=== PATIENT | female | born 1940 | race Caucasian/White ===

== ENCOUNTER 2016-06-17 08:56 | Inpatient (IN) | payer OTHER ==
--- NOTE | 2016-06-17 09:29 | CPEKG ---
Heart Rate: 96 RR Interval: 625 P-R Interval: 152 QRSD Interval: 96 QT Interval: 274 QTC Interval: 347 P Phoenix: 35 QRS Phoenix: -51 T Wave Phoenix: 172 EKG Severity - ABNORMAL ECG - EKG Impression: SINUS RHYTHM EKG Impression: VENTRICULAR BIGEMINY EKG Impression: PROBABLE LEFT ATRIAL ABNORMALITY EKG Impression: LEFT ANTERIOR FASCICULAR BLOCK EKG Impression: REPOL ABNRM SUGGESTS ISCHEMIA, DIFFUSE LEADS Electronically Signed By: Lizet Nails 17-Jun-2016 15:10:53
--- NOTE | 2016-06-17 09:42 | EDPHY ---
H & P Stated Complaint: l jaw pain/no ttrauma x 2 days Time Seen by Provider: 06/17/16 09:29 HPI/ROS: CHIEF COMPLAINT: Jaw pain HISTORY OF PRESENT ILLNESS: The patient is a 75 year old female presenting with left sided jaw pain that started yesterday and has since remained constant. Her pain worsened throughout the day and began to radiate into her lip and cheek. She notes some right sided dental pain that is very moderate. Last night she had some shortness of breath while trying to sleep. She took Tylenol last night and this morning which slightly improved her pain. She denies chest pain. The patient is scheduled to have an ECHO today to further investigate a cardiac murmur. REVIEW OF SYSTEMS: Aside from elements discussed in the HPI, a comprehensive 10-point review of systems was reviewed and is negative. PAST MEDICAL HISTORY: I reviewed the patient's past medical records from . 1. Schizophrenia 2. DVT/PE in 2007 3. COPD, 2L oxygen dependent 4. Chronic back pain 5. Hypertension 6. Chronic constipation 7. Bigeminy 8. Hip replacement SOCIAL HISTORY: Has a art manager. In 2009 was residing in a psych senior care. VITAL SIGNS: Reviewed by me GENERAL: Well-developed, well-nourished, resting comfortably in no respiratory distress. HEENT: Atraumatic. Eyes: No icterus, no injection. Mouth: moist mucous membranes. No erythema or lesions. Neck: supple with no adenopathy. LUNGS: Clear to auscultation bilaterally, no wheezes, rhonchi or rales. CARDIAC: Irregular, cresendo- decrescendo murmur. ABDOMEN: Soft, nontender, nondistended, bowel sounds normal. BACK: No CVA tenderness. EXTREMITIES: No trauma. No edema. Range of motion is normal throughout. NEURO: Alert and oriented, grossly nonfocal. SKIN: Warm and dry, no rash. PSYCHIATRIC: Normal mentation, no agitation. Portions of this note were transcribed by a medical laboratory scientist. I personally performed a history, physical exam, medical decision making, and confirmed accuracy of information the transcribed note. Source: Patient, Old records - Personal History Current Tetanus/Diphtheria Vaccine: Yes - Medical/Surgical History Hx Asthma: No Hx Chronic Respiratory Disease: No Hx Diabetes: No Hx Cardiac Disease: No Hx Renal Disease: No Hx Cirrhosis: No Hx Alcoholism: No Hx HIV/AIDS: No Hx Splenectomy or Spleen Trauma: No Other PMH: hip replacement - Social History Smoking Status: Never smoked Constitutional: Initial Vital Signs Temperature (C) 37.1 C 06/17/16 09:02 Heart Rate 74 06/17/16 09:02 Respiratory Rate 18 06/17/16 09:02 Blood Pressure 149/94 H 06/17/16 09:02 O2 Sat (%) 93 06/17/16 09:02 O2 Delivery Mode Nasal Cannula O2 (L/minute) 3.5 Allergies/Adverse Reactions: loratadine [Loratadine] Allergy (Mild, Verified 06/17/16 08:57) Rash Home Medications: Medication Instructions Recorded Docusate Sodium [Colace 100 MG (*)] 100 mg PO BID@,12 06/04/09 Furosemide [Lasix 20 MG (*)] 20 mg PO DAILY 06/04/09 Multivitamins [Multivitamin (*)] 1 each PO BID@,06/04/09 QUEtiapine FUMARATE [Seroquel 300 mg PO HS 06/04/09 300mg (*)] Ramipril [Altace 1.25mg (*)] 1.25 mg PO DAILY 06/04/09 Warfarin Sodium [Coumadin 4MG (*)] 4 mg PO MOTUWEFRSA@06/04/09 Herbals/Supplements -Info Only 1 ea PO DAILY 12/21/09 Levothyroxine [Synthroid 75 mcg 75 mcg PO DAILY06 12/21/09 (*)] Simvastatin [Zocor] 20 mg PO DAILY@12/21/09 Warfarin Sodium [Coumadin 5MG (*)] 5 mg PO SUTH@12/21/09 Acetaminophen [Tylenol 325mg (*)] 650 mg PO Q4HRS PRN 06/17/16 Ibuprofen [Motrin (*)] 200 mg PO Q4HRS PRN 06/17/16 [place] Carbonate ER [Eskalith Cr 675 mg PO HS 06/17/16 450 mg (*)] Medical Decision Making - Diagnostics EKG Interpretation: The 12 lead EKG was interpreted by myself. See hard copy and/or "tracemaster" electronic copy for interpretation: Sinus rhythm, paired ventricular premature complexes, low voltage in frontal leads. Imaging: Study: X-ray of the chest was obtained. Results: Interval enlargement of the right hilum. Recommend chest CT with IV contrast for further evaluation, when the patient is clinically able.. Images were interpreted by the radiologist, Dr. Martinez. I viewed the images myself on the PACS system. ED Course/Re-evaluation: I reviewed the patient's past medical records from 2009. The patient has a history of schizophrenia and PE/DVT. According to records she has COPD and is supposed to be on 2L of O2. The patient is not on any supplemental oxygen. She is 90% on room air. Bigeminy today is consistent with previous records. The patient received 324mg Aspirin PO. 11:00 am: The patient was seen by cardiology, ECHO was performed. Patient has mitral prolapse and severe mitral regurgitation. This is a 75-year-old female presents complaining of jaw pain and facial pain. Initial EKG reveals the patient to be in bigeminy. Chest x-ray demonstrates cardiomegaly but no signs of pulmonary edema. Patient's BNP is 2050. Troponin is 0.025. Of concern she has a significantly abnormal echocardiogram with both mitral prolapse and mitral regurgitation. Patient will be admitted for further evaluation including serial troponins, treatment of mild congestive heart failure, and evaluation by Cardiology for her valvular dysfunction. 11:05 am: Course was discussed with the hospitalist service. Patient will be admitted Dr. House. Differential Diagnosis: Differential diagnoses for the patient's symptom complex was considered including but not limited to acute coronary syndrome, congestive heart failure, valvular pathology, dental infection. Consult/Admit Bed Type: Dr. Gregory House, med surg - Data Points Laboratory Results: Laboratory Results 06/17/16 09:30 06/17/16 09:46 Medications Given: Discontinued Medications Aspirin (Aspirin) 324 mg PO EDNOW ONE Stop: 06/17/16 09:47 Last Admin: 06/17/16 10:14 Dose: 324 mg Benzocaine (Hurricaine [place]) 1 each MM ONCALL ONE Stop: 06/18/16 13:24 Last Admin: 06/18/16 14:17 Dose: Not Given Fentanyl (Sublimaze) 0 - 100 mcg IVP ONCALL ONE Stop: 06/18/16 13:24 Last Admin: 06/18/16 14:17 Dose: Not Given Sodium Chloride (Ns) 500 mls @ 0 mls/hr IV ONCE ONE PRN Reason: As Directed Stop: 06/17/16 09:47 Last Admin: 06/17/16 10:14 Dose: 500 mls Doxycycline Hyclate 100 mg/ (Sodium Chloride) 260 mls @ 260 mls/hr IV Q12HRS RUTH PRN Reason: Protocol Stop: 07/17/16 13:59 Last Admin: 06/18/16 04:59 Dose: 260 mls Sodium Chloride (Ns) 1,000 mls @ 0 mls/hr IV ONCALL ONE PRN Reason: TKO Stop: 06/18/16 13:24 Last Admin: 06/18/16 14:17 Dose: Not Given Midazolam HCl (Versed) 0 - 6 mg IVP ONCALL ONE Stop: 06/18/16 13:24 Last Admin: 06/18/16 14:17 Dose: Not Given Warfarin Sodium (Coumadin) 4 mg PO MOTUWEFRSA@17 [facility] Stop: 12/14/16 16:59 Last Admin: 06/17/16 17:46 Dose: 4 mg Departure - Departure Disposition: [facility] Acute Clinical Impression: CHF (congestive heart failure), Valvular insufficiency, mitral, Mitral prolapse , Jaw pain Condition: Fair Report Scribed for: Lizet Nails Report Scribed by: Niurka Martins Date of Report: 06/17/16 Time of Report: 09:55
[2016-06-17] MEDS ORDERED: NS 500 ML IV ONE (09:46)
[2016-06-17] MEDS ORDERED: ASPIRIN 81 MG CHEWABLE TAB PO ONE (09:46)
[2016-06-17 09:54] LABS: % IMMATURE GRANULYOCYTES 0.1 % (0.0-1.1); ABSOLUTE IMMATURE GRANULOCYTES 0.01 10^3/uL (0.00-0.10); ADD DIFF? NO; ADD MORPH? NO; ADD SCAN? NO; ATYPICAL LYMPHOCYTE FLAG 0 (0-99); FRAGMENT RBC FLAG 0 (0-99); HEMATOCRIT 47.2 % (38.0-47.0); HEMOGLOBIN 15.1 g/dL (12.6-16.3); LEFT SHIFT FLG 0 (0-99); LIPEMIA HEMOLYSIS FLAG 80 (0-99); MEAN CELL HEMOGLOBIN 30.3 pg (27.9-34.1); MEAN CELL VOLUME 94.6 fL (81.5-99.8); MEAN PLATELET VOLUME 9.9 fL (8.7-11.7); PLATELET CLUMPS FLAG 0 (0-99); PLATELET COUNT 242 10^3/uL (150-400); RED BLOOD CELL COUNT 4.99 10^6/uL (4.18-5.33); RED CELL DISTRIBUTION WIDTH 12.9 % (11.5-15.2)
[2016-06-17 10:12] LABS: ANION GAP 13 mEq/L (8-16); CARBON DIOXIDE 24 mEq/l (22-31); CHLORIDE 107 mEq/L (97-110); CREATININE 0.9 mg/dL (0.6-1.0); GLOMERULAR FILTRATION RATE > 60; GLUCOSE 118 mg/dL (70-100); POTASSIUM 4.4 mEq/L (3.5-5.2); SODIUM 144 mEq/L (134-144)
[2016-06-17 10:24] LABS: TROPONIN I 0.025 ng/mL (0-0.034)
--- NOTE | 2016-06-17 11:43 | DX ---
Chest, PA and Lateral History: Chest pain, jaw pain COMPARISON: October 03, 2010 Findings: On the lateral view the right hilum is significantly larger than it was in 2011. Lungs are clear, without infiltrate or consolidation. Heart size is normal. There is no visible mass lesion. Th ere is no pleural effusion or pneumothorax. There is a chronic thoracolumbar scoliosis. There is feca l filled colon beneath the chronically elevated right hemidiaphragm , consistent with Chilaiditi's sy ndrome. EKG leads overlie the chest. Impression: Interval enlargement of the right hilum. Recommend chest CT with IV contrast for further evaluation, when the patient is clinically able. If there is concern for pulmonary embolism, then CT angiography would be appropriate. Results called to Lizet Nails.
[2016-06-17] MEDS ORDERED: ONDANSETRON 4 MG/2 ML VIAL IVP PRN (13:37)
--- NOTE | 2016-06-17 13:42 | PDGENHP ---
History and Physical History and Physical: HISTORY AND PHYSICAL ADMISSION NOTE CC: Left jaw pain HISTORY: This patient comes into the ER complaining of left jaw pain that is been constantly present for more than 24 hours now. Is not significantly increasing or decreasing. She does notice that it is sore when she pushes on her jaw. She has had no chest pain, neck pain, shortness of breath, nausea, diaphoresis when I ask her about the symptoms that she did mention some nocturnal dyspnea with her ER doctor today. She does have a history of COPD. She has not been coughing or having fever symptoms. She does not particularly notice that it hurts to chew but she really has not eaten anything since this started yesterday. The patient does have a long history of dental issues and has numerous missing teeth as well as some replaced with caps. In addition is notable that the patient had been referred for an outpatient echocardiogram to be done today. This came from her primary care doctor who found her to have a significant murmur when she presented after an episode of tingling in her left arm. She does not recall the details of that episode of tingling in the left arm very well and is hard for me to sort out what is really happening there ROS: 10 system review of systems reveals no other abnormal findings PAST. MEDICAL HISTORY: Pulmonary embolism Schizophrenia COPD Chronic low back pain Hypertension Constipation Total hip replacement Ventricular bigeminy Hypothyroidism FAMILY MEDICAL HISTORY: Her mother of pulmonary embolism SOCIAL HISTORY: She is single, and disabled by her schizophrenia. She has been living in a assisted living house for the past 7 years, and the director of that house is here with her at the bedside now. She apparently has 2 daughters from whom she is estranged. Tobacco use ongoing. No alcohol MEDICATIONS: The list has been reconciled in the electronic record prior pharmacist, I have reviewed this list and ordered appropriate medications PHYSICAL EXAMINATION: Vital Signs: Stable without fever Geriatrician: sinus rhythm with occasional PVC, mono form Examination: General: alert, oriented, good mentation, relaxed Skin: warm, dry, good color, no rash HEENT: There is tenderness over the left maxilla. There is no cellulitis of the skin or subcutaneous tissues. The lower left teeth are all severely carious and worn down to the gum line and there is gingivitis present. An abscess could certainly be possible. Several of her teeth from the other portions of her mouth are missing were replaced by caps. The rest of the HEENT is normal Neck: no mass or jvd Resps: relaxed Lungs: clear breath sounds Heart: regular, no murmur Abdomen: soft, nondistended, nontender, +BS, no mass Upper Extremities: normal Lower Extremities: no edema, warm No Bleeding or bruising Neurologic: normal speech/language, normal portal developer, no focal weakness IV site: looks normal LABORATORY DATA: White blood cell count elevated at 10.9 1000 rest of her CBC and chemistry are unremarkable. Her troponin is normal. She does have a minimally elevated BNP RADIOLOGY STUDIES: Chest x-ray, two views done in the ER today, my personal interpretation of the images: There is no mass, infiltrate, effusion, heart failure, and the bony structures appear normal. 12 lead EKG, my personal interpretation of the tracing: Sinus rhythm with PACs , no ischemic abnormalities ASSESSMENT: DIAGNOSES: # LEFT MANDIBULAR DENTAL INFECTION, PROBABLY INVOLVING MULTIPLE TEETH WITH POSSIBLE ABSCESS -(this is the cause of her jaw pain and I do not think this is a cardiac symptom) # CARDIAC MURMUR IS HEARD IN LATE SYSTOLE. THIS MAY BE MITRAL IN ORIGIN BASED ON LOCATION WITH ECHOCARDIOGRAM PENDING. -given that she has ongoing dental infection i am ordering some blood cultures and will review the echocardiogram carefully with cardiology and look for other signs of endocarditis, which at this time i have a low suspicion about # COPD APPEARS STABLE AT THIS TIME # HYPERTENSION CURRENTLY CONTROLLED # BASED ON HER RECENT THYROID BLOOD TESTING I WOULD BELIEVE SHE PROBABLY HAS A RECENT DIAGNOSIS OF HYPOTHYROIDISM AND RECENTLY STARTED ON MEDICATION OR AT LEAST HAD MEDICATION DOSE ADJUSTMENT SO I WILL RECHECK TSH PLANS: -Admission to hospital, inpatient due to infection with ongoing IV antibiotics required -start doxycycline for dental infection -blood cultures before antibiotics as I am concerned with some low likelihood of endocarditis -review echocardiogram with cardiology; determine if any other further measures such as heart failure treatments or trans esophageal echo are warranted -check TSH -DVT prophylaxis measures -she can have a regular diet at this time I have reviewed the patient's case in detail with Dr. Nails, and I will review with residential solar consultant who saw her in the ER I have reviewed the patient's past medical records as part of this assessment, including past laboratory data are reviewed
--- NOTE | 2016-06-17 14:02 | ECHO ---
[id number] + + [address] : : [place] [address] : : [phone] + Adult Echocardiographic Report + -------+ :Name: MYRTLE OLEA LStudy Date: 06/17/2016 10:35 AM : : Hospital Admission Number: [id number] Locat ion: ER: :: 1940 Gender: Female Height: 67 in : :Age: 75 yrs Race: WH Weight: 160 l b : :Reason For Study: Chest pain/systolic/diastolic murmur : : BSA: 1.8 mete rs2 : + -------+ MMode/2D Measurements & Calculations IVSd: 0.96 cm LVIDd: 5.5 cm FS: 46.4 % MV Diam: 5.0 cm LVPWd: 0.75 cm LVIDs: 2.9 cm EDV(Teich): 145.6 ml ESV(Teich): 33.0 ml EF(Teich): 77.3 % LA dimension: LVOT diam: 1.9 cmLVLd ap4: 7.9 cm SV(MOD-sp4): 4.9 cm LVOT area: EDV(MOD-sp4): 73.0 ml 2.8 cm2 98.0 ml LVLs ap4: 6.3 cm ESV(MOD-sp4): 25.0 ml EF(MOD-sp4): 74.5 % Normal Measurement Values: + + :LVIDd (3.5-5.7cm) IVSd (0.6-1.1cm) LVPWd (0.6-1.1cm) Aortic Root (2.0-3.7cm)Left Atrium (1.5-4.0cm): :LV Vol(d) (76-115ml) LV Vol(s) (29-48ml) Ejec Fraction (50-65%)PV Freddie (0.6- 1.2m/s) TV Freddie (0.4-1.0m/s) : :MV E Freddie (0.8-1.0m/s)MV A Freddie (0.3-1.0m/s)LVOT Freddie (0.7-1.2m/s) Asc Ao Freddie ( 0.9-1.8m/s) : + + Doppler Measurements & Calculations MV V2 max: Ao V2 max: LV V1 max: MR max freddie: 134.0 cm/sec 146.0 cm/sec 79.7 cm/sec 565.0 cm/sec MV max P.2 mmHg Ao max P.5 mmHgLV V1 max PG: MR max PG: MV V2 mean: Ao mean P.5 mmHg 127.7 mmHg 68.3 cm/sec 4.0 mmHg LV V1 mean PG: MV mean P.0 mmHg Ao V2 mean: 1.0 mmHg MV V2 VTI: 31.0 cm 90.6 cm/sec LV V1 mean: MV area (1 diam): Ao V2 VTI: 29.8 cm 48.2 cm/sec 19.6 cm2 JOVANNY(I,D): 1.6 cm2 LV V1 VTI: 16.9 cm MVA(VTI): 1.5 cm2 JOVANNY(V,D): 1.5 cm2 MV Flow area(1diam): 19.6 cm2 MR(RF 1 diam): 8.5 % SV(MV 1 diam): TR max freddie: RF(MV,LVOT) 608.7 ml 315.0 cm/sec (1diam): 0.92 SI(MV 1 diam): TR max P.0 ml/m2 39.7 mmHg SV(LVOT): 47.9 ml RAP systole: 10.0 mmHg RVSP(TR): 49.7 mmHg Left Ventricle The left ventricle is normal in size. There is normal left ventricular wall thickness. The left ventricle is hyperdynamic. Ejection Fraction = 70-75%. No regional wall motion abnormalities noted. Right Ventricle The right ventricle is normal in size and function. Atria The left atrium is severely dilated. Right atrial size is normal. Mitral Valve There is mild mitral annular calcification. Prolapse of the posterior mitral leaflet(s). There is no mitral valve stenosis. There is severe mitral regurgitation. The mitral regurgitant jet is anteriorly directed, which is consistent with posterior leaflet pathology. Tricuspid Valve Normal tricuspid valve. There is mild to moderate tricuspid regurgitation. Right ventricular systolic pressure is 50mmHg. There is Doppler evidence for moderate pulmonary hypertension. Aortic Valve The aortic valve is trileaflet. The aortic valve opens well. Mild Ao calcification. There is no aortic stenosis. There is no aortic insufficiency. Pulmonic Valve The pulmonic valve is normal in structure and function. Trace pulmonic valvular regurgitation. Great Vessels The aortic root is normal size. Pericardium/Pleural There is no pericardial effusion. Conclusion A complete two-dimensional transthoracic echocardiogram was performed (2D, M-mode, Doppler and color flow Doppler). The left ventricle is hyperdynamic. Ejection Fraction = 70-75%. The left atrium is severely dilated. There is mild mitral annular calcification. Prolapse of the posterior mitral leaflet(s). There is severe mitral regurgitation. The mitral regurgitant jet is anteriorly directed, which is consistent with posterior leaflet pathology. Mild to moderate TR Right ventricular systolic pressure is 50mmHg. There is Doppler evidence for moderate pulmonary hypertension. Mild Ao calcification. No Trace pulmonic valvular regurgitation. Compared with 12/22/2009, MR has progressed PHTN now present. Consider DOMONIQUE and cardiology consultation Final Reading Physician: Dr Marissa Cruz electronically signed on 06/17/2016 02:01 PM Ordering Physician: Lizet Nails Performed By: Karyn Gould RDCS
[2016-06-17] MEDS: ACETAMINOPHEN 325 MG TAB PO PRN ×2 (15:37→21:35)
[2016-06-17] MEDS: DOXYCYCLINE INJ 100 MG in NS 250 ML IV SCH (15:37)
[2016-06-17] MEDS ORDERED: WARFARIN SODIUM 4 MG TAB PO SCH (17:00)
[2016-06-17] MEDS: ATORVASTATIN CALCIUM 10 MG TAB PO SCH (17:46)
[2016-06-17] MEDS: MULTIVITAMINS 1 EACH TAB PO SCH (17:46)
[2016-06-17] MEDS: LITHIUM CARBONATE ER 450 MG TAB PO SCH (21:34)
[2016-06-17] MEDS: QUEtiapine FUMARATE 300 MG TAB PO SCH (21:35)
[2016-06-17] MEDS: oxyCODONE IR 5 MG TAB PO PRN (21:40)
[2016-06-18] MEDS: LEVOTHYROXINE 75 MCG TAB PO SCH (04:59)
[2016-06-18] MEDS: DOXYCYCLINE INJ 100 MG in NS 250 ML IV SCH (04:59)
[2016-06-18] MEDS ORDERED: NS 1,000 ML IV SCH (06:00)
[2016-06-18 06:03] LABS: % IMMATURE GRANULYOCYTES 0.3 % (0.0-1.1); ABSOLUTE IMMATURE GRANULOCYTES 0.03 10^3/uL (0.00-0.10); ADD DIFF? NO; ADD MORPH? NO; ADD SCAN? NO; ATYPICAL LYMPHOCYTE FLAG 10 (0-99); FRAGMENT RBC FLAG 0 (0-99); HEMATOCRIT 39.6 % (38.0-47.0); HEMOGLOBIN 12.8 g/dL (12.6-16.3); LEFT SHIFT FLG 0 (0-99); LIPEMIA HEMOLYSIS FLAG 80 (0-99); MEAN CELL HEMOGLOBIN 30.6 pg (27.9-34.1); MEAN CELL HEMOGLOBIN CONCENTR. 32.3 g/dL (32.4-36.7); MEAN CELL VOLUME 94.7 fL (81.5-99.8); MEAN PLATELET VOLUME 9.6 fL (8.7-11.7); PLATELET CLUMPS FLAG 0 (0-99); PLATELET COUNT 182 10^3/uL (150-400); RED BLOOD CELL COUNT 4.18 10^6/uL (4.18-5.33); RED CELL DISTRIBUTION WIDTH 13.1 % (11.5-15.2)
[2016-06-18] MEDS ORDERED: FUROSEMIDE 20 MG TAB PO SCH (09:00)
[2016-06-18] MEDS ORDERED: RAMIPRIL 1.25 MG CAP PO SCH (09:00)
[2016-06-18] MEDS: oxyCODONE IR 5 MG TAB PO PRN ×2 (09:03→23:51)
[2016-06-18] MEDS: DOCUSATE SODIUM 100 MG CAP PO SCH ×3 (09:05→21:08)
[2016-06-18] MEDS: MULTIVITAMINS 1 EACH TAB PO SCH ×2 (09:05→17:03)
[2016-06-18] MEDS: AMPICILLIN/SULBACTAM 3 GM in NS 100 ML IV SCH ×4 (11:10→23:05)
[2016-06-18 12:18] LABS: INR 4.19 (0.83-1.16); PROTIME(PATIENT) 41.2 SEC (12.0-15.0)
--- NOTE | 2016-06-18 12:58 | PDCARCONS ---
Cardiology Consult Reason for Consult: Severe mitral regurgitation Chief Complaint: Left-sided jaw pain Requesting Physician: Dr. House History of Present Illness: 75 y/o F admitted through ED with progressive and severe jaw pain x 2 days. She was awoken 2 nights ago with severely restless legs along with her jaw pain. Her jaw pain has been attributed to a dental infection. Incidentally, her PCP recently discovered a systolic ejection murmur during an office visit on June 06 and she was scheduled to have an outpatient transthoracic echocardiogram performed in our office yesterday which she did not show up for. At her visit with her PCP she had complained of an isolated episode of right arm pain and numbness; however this symptom has not recurred. Echocardiography performed this admission shows severe mitral regurgitation. Her systolic ejection murmur is 3/6 crescendo-decrescendo. There are no prior echocardiograms for comparison. She denies any progressive shortness of breath, lightheadedness, chest discomfort, or palpitations. She denies any fever or chills. She denies any recent illnesses. She appears euvolemic on exam today; however there are mild pulmonary rales on auscultation. She has no peripheral edema or JVD. She has no known cardiac history that she can remember however she did undergo nuclear stress testing in 2010 that was normal. She has a history of PVCs that are asymptomatic. She has a history of hypertension that is treated with lisinopril. She is a prior smoker but quit 40 years ago. She denies any family history of CAD, diabetes, or hyperlipidemia. Her other past medical history is remarkable for pulmonary embolism in 2008 that is treated with chronic coumadin anticoagulation, history of hip replacement in 2009, schizophrenia. History Information - Allergies/Home Medication List Allergies/Adverse Reactions: loratadine [Loratadine] Allergy (Mild, Verified 06/17/16 08:57) Rash Home Medications: Docusate Sodium [Colace 100 MG (*)] 100 mg PO BID@,06/04/09 [Last Taken Unknown] Furosemide [Lasix 20 MG (*)] 20 mg PO DAILY 06/04/09 [Last Taken Unknown] Multivitamins [Multivitamin (*)] 1 each PO BID@,06/04/09 [Last Taken Unknown] QUEtiapine FUMARATE [Seroquel 300mg (*)] 300 mg PO HS 06/04/09 [Last Taken Unknown] Ramipril [Altace 1.25mg (*)] 1.25 mg PO DAILY 06/04/09 [Last Taken Unknown] Warfarin Sodium [Coumadin 4MG (*)] 4 mg PO MOTUWEFRSA@06/04/09 [Last Taken Unknown] Herbals/Supplements -Info Only 1 ea PO DAILY 12/21/09 [Last Taken Unknown] Levothyroxine [Synthroid 75 mcg (*)] 75 mcg PO DAILY06 12/21/09 [Last Taken Unknown] Simvastatin [Zocor] 20 mg PO DAILY@12/21/09 [Last Taken Unknown] Warfarin Sodium [Coumadin 5MG (*)] 5 mg PO SUTH@12/21/09 [Last Taken Unknown] Acetaminophen [Tylenol 325mg (*)] 650 mg PO Q4HRS PRN 06/17/16 [Last Taken Unknown] Ibuprofen [Motrin (*)] 200 mg PO Q4HRS PRN 06/17/16 [Last Taken Unknown] [place] Carbonate ER [Eskalith Cr 450 mg (*)] 675 mg PO HS 06/17/16 [Last Taken Unknown] - Social History Smoking Status: Never smoked Cardiac History - Cardiac History Past Cardiac History: OTHER (PVCs) Cardiac Risk Factors: hypertension (>140/90), age > 65 Physical Exam Temp Pulse Resp BP Pulse Ox 37.1 C 74 18 110/56 L 99 06/18/16 12:00 06/18/16 12:00 06/18/16 12:00 06/18/16 12:00 06/18/16 12:00 O2 (L/minute) 2 Constitutional: no apparent distress, appears nourished, not in pain Cardiovascular: regular rate and rhythym, no murmur, rub, or gallop, systolic murmur (III/ crescendo-decrescendo), No JVD, No edema Peripheral Pulses: 2+: dorsalis-pedis (R), dorsalis-pedis (L) Respiratory: inspiratory crackles Gastrointestinal: normoactive bowel sounds, soft, non-tender abdomen, no palpable masses Neurologic: AAOx3 Psychiatric: interacting appropriately, not anxious, not encephalopathic, thought process linear Lab and Imaging 06/18/16 05:44 06/17/16 09:46 WBC 10.68 10^3/uL (3.80-9.50) H 06/18/16 05:44 RBC 4.18 10^6/uL (4.18-5.33) 06/18/16 05:44 Hgb 12.8 g/dL (12.6-16.3) 06/18/16 05:44 Hct 39.6 % (38.0-47.0) 06/18/16 05:44 MCV 94.7 fL (81.5-99.8) 06/18/16 05:44 MCH 30.6 pg (27.9-34.1) 06/18/16 05:44 MCHC 32.3 g/dL (32.4-36.7) L 06/18/16 05:44 RDW 13.1 % (11.5-15.2) 06/18/16 05:44 Plt Count 182 10^3/uL (150-400) D 06/18/16 05:44 MPV 9.6 fL (8.7-11.7) 06/18/16 05:44 Neut % (Auto) 68.8 % (39.3-74.2) 06/18/16 05:44 Lymph % (Auto) 18.1 % (15.0-45.0) 06/18/16 05:44 [place] % (Auto) 10.1 % (4.5-13.0) 06/18/16 05:44 Eos % (Auto) 2.0 % (0.6-7.6) 06/18/16 05:44 Baso % (Auto) 0.7 % (0.3-1.7) 06/18/16 05:44 Nucleat RBC Rel Count 0.0 % (0.0-0.2) 06/18/16 05:44 Absolute Neuts (auto) 7.36 10^3/uL (1.70-6.50) H 06/18/16 05:44 Absolute Lymphs (auto) 1.93 10^3/uL (1.00-3.00) 06/18/16 05:44 Absolute Monos (auto) 1.08 10^3/uL (0.30-0.80) H 06/18/16 05:44 Absolute Eos (auto) 0.21 10^3/uL (0.03-0.40) 06/18/16 05:44 Absolute Basos (auto) 0.07 10^3/uL (0.02-0.10) 06/18/16 05:44 Absolute Nucleated RBC 0.00 10^3/uL (0-0.01) 06/18/16 05:44 Immature Gran % 0.3 % (0.0-1.1) 06/18/16 05:44 Immature Gran # 0.03 10^3/uL (0.00-0.10) 06/18/16 05:44 PT 41.2 SEC (12.0-15.0) H 06/18/16 11:50 INR 4.19 (0.83-1.16) H 06/18/16 11:50 Sodium 144 mEq/L (134-144) 06/17/16 09:46 Potassium 4.4 mEq/L (3.5-5.2) 06/17/16 09:46 Chloride 107 mEq/L (97-110) 06/17/16 09:46 Carbon Dioxide 24 mEq/l (22-31) 06/17/16 09:46 Anion Gap 13 mEq/L (8-16) 06/17/16 09:46 BUN 14 mg/dL (7-23) 06/17/16 09:46 Creatinine 0.9 mg/dL (0.6-1.0) 06/17/16 09:46 Estimated GFR > 60 06/17/16 09:46 Glucose 118 mg/dL (70-100) H 06/17/16 09:46 Calcium 10.0 mg/dL (8.5-10.4) 06/17/16 09:46 Troponin I 0.025 ng/mL (0-0.034) 06/17/16 09:46 NT-Pro-B Natriuret Pep 2050 pg/mL (0-450) H 06/17/16 09:46 TSH 3.100 uIU/mL (0.465-4.680) 06/18/16 05:44 A/P Assessment: 1. Severe mitral valve regurgitation. Unclear if this is age-related or if there is subclinical endocarditis. She appears euvolemic on exam however her ntBNP is markedly elevated at >2000. 2. Jaw pain attributed to dental infection on the left side of her jaw. Currently treated with ampicillin iv gtt. Blood cultures are pending. 3. History of pulmonary embolism in 2008. She is on chronic coumadin anticoagulation. INR today is 4.19. 4. Hypertension. 5. COPD. 6. Remote history of tobacco use. 7. Schizophrenia. Plan: 1. DOMONIQUE today. Further recommendations pending results.
[2016-06-18] MEDS ORDERED: NS 1,000 ML IV ONE (13:23)
[2016-06-18] MEDS ORDERED: MIDAZOLAM 2 MG/2 ML VIAL IVP ONE (13:23)
[2016-06-18] MEDS ORDERED: BENZOCAINE UNIT DOSE SPRAY HURRICAINE MM ONE (13:23)
[2016-06-18] MEDS ORDERED: fentaNYL 100 MCG/2 ML INJ IVP ONE (13:23)
--- NOTE | 2016-06-18 14:05 | HOSPPROG ---
Hospitalist Progress Note Assessment/Plan: # acute left jaw pain swelling- suspected dental caries versus mandibular infection - order CT maxillofacial protocol to rule out abscess / osteo - start Augmentin Q6 - can involve surgical consultants pending CT imaging # Acute heart murmur- severe mitral regurgitation on echo- concerns for possible endocarditis secondary to concurrent dental infection telemetry( personally reviewed and interpreted) sinus rhythm - Dr. Singh consulting - DOMONIQUE ordered # history of DVT- on anticoagulation- INR 4.19 - hold warfarin this evening - recheck INR in the morning # COPD- stable from a pulmonary standpoint- oxygen saturation 99% on 2 L - continue home meds # schizophrenia- continue home meds # prophylaxis on full-dose anticoag # diet NPO for DOMONIQUE # disposition greater than 2 midnights patient presenting with concerns for possible endocarditis I have discussed the case with the RN- patient's facial swelling remains pronounced will obtain CT imaging today Subjective: discomfort of the left jaw Objective: Vital Signs Temp Pulse Resp BP Pulse Ox 37.1 C 74 18 110/56 L 99 06/18/16 12:00 06/18/16 12:00 06/18/16 12:00 06/18/16 12:00 06/18/16 12:00 Laboratory Results 06/18/16 05:44 06/17/16 06/18/16 06/19/16 05:59 05:59 05:59 Intake Total 1210 Output Total 500 500 Balance 710 -500 PT 41.2 SEC (12.0-15.0) H 06/18/16 11:50 INR 4.19 (0.83-1.16) H 06/18/16 11:50 - Physical Exam Constitutional: appears nourished Eyes: other ( left chest swelling) Ears, Nose, Mouth, Throat: moist mucous membranes Cardiovascular: regular rate and rhythym, systolic murmur Respiratory: no respiratory distress, no rales or rhonchi Gastrointestinal: normoactive bowel sounds, soft, non-tender abdomen Genitourinary: no bladder fullness Skin: warm, normal color Musculoskeletal: No asymmetric calves Neurologic: AAOx3 Psychiatric: flat affect Lymph, Heme, Immunologic: no cervical LAD ICD10 Worksheet Patient Problems: Problems Problem Status Diagnosed CHF (congestive heart failure) Acute Jaw pain Acute Mitral prolapse Acute Valvular insufficiency, mitral Acute
[2016-06-18] MEDS ORDERED: MIDAZOLAM 2 MG/2 ML VIAL ONE (14:10)
[2016-06-18] MEDS ORDERED: fentaNYL 100 MCG/2 ML INJ ONE (14:10)
[2016-06-18] MEDS: ATORVASTATIN CALCIUM 10 MG TAB PO SCH (16:59)
[2016-06-18] MEDS ORDERED: DOXYCYCLINE INJ 100 MG in NS 250 ML IV SCH (17:00)
[2016-06-18] MEDS: ACETAMINOPHEN 325 MG TAB PO PRN ×2 (17:02→23:51)
[2016-06-18] MEDS ORDERED: IOPAMIDOL (ISOVUE-300) 100 ML BTL IV ONE (18:10)
--- NOTE | 2016-06-18 20:22 | CT ---
CT Face, With IV Contrast, dated June 17, 2016 INDICATION: Left-sided facial pain and swelling. Evaluate for abscess and osteomyelitis. TECHNIQUE: 1.5-mm helically acquired slices were obtained through the face following uneventful intr avenous administration of 80 mL of Isovue-300. Two acquisitions were obtained to optimally appreciat e the contrast enhancement. The data was reconstructed in soft tissue and bone algorithm in the axia l and coronal plane. COMPARISON: CT angiogram of the neck from December 21, 2009 is not available for comparison. FINDINGS: Skin thickening is present along the left side of the mandible and chin. Generalized subc utaneous edema and swelling is present anterior to the chin and along the lateral body of the mandibl e. The edema and swelling is limited to the superficial soft tissue planes. No edema or soft tissue swelling deep to the platysma or in the deep spaces of the neck. No fluid collection or subperiosteal abscess. The mandible is preserved. No erosions or mucoperiost eal reaction. The left canine in the mandible has a periapical cyst indicative of a dental cavity. There is no associated osteomyelitis or fluid collection associated with the dental cavity. Bilateral parotid glands are normal. No calculi within the glands or along the course of Stensen's d uct. The left maxillary sinus is partially opacified, with circumferential mucosal thickening, and has mil d mucoperiosteal reaction. The right maxillary sinus, sphenoid, frontal, ethmoid, and mastoid air ce lls are all well aerated and clear. The orbits are normal. No proptosis or retrobulbar fluid collection. The imaged portion of the brain is normal. The sagittal sinus is patent. Bilateral internal jugular veins are patent, with no thrombosis. The epiglottis and parapharyngeal soft tissue spaces are normal. No enlargement of the palatine tons ils. IMPRESSION: 1. Superficial cellulitis along the left side of the mandible and chin. 2. Presumed dental cavity involving the apex of the left canine in the mandible. 3. No abscess or evidence of osteomyelitis. 4. Mild chronic left maxillary sinus disease.
[2016-06-18] MEDS: LITHIUM CARBONATE ER 450 MG TAB PO SCH (21:07)
[2016-06-18] MEDS: QUEtiapine FUMARATE 300 MG TAB PO SCH (21:07)
[2016-06-18] MEDS: ZOLPIDEM TARTRATE 5 MG TAB PO PRN (21:08)
[2016-06-19] MEDS ORDERED: NS BOLUS 500 ML (Wide open) IV ONE (05:00)
[2016-06-19 05:14] LABS: HEMATOCRIT 35.2 % (38.0-47.0); HEMOGLOBIN 11.1 g/dL (12.6-16.3); MEAN CELL HEMOGLOBIN 30.4 pg (27.9-34.1); MEAN CELL HEMOGLOBIN CONCENTR. 31.5 g/dL (32.4-36.7); MEAN CELL VOLUME 96.4 fL (81.5-99.8); RED BLOOD CELL COUNT 3.65 10^6/uL (4.18-5.33); RED CELL DISTRIBUTION WIDTH 13.2 % (11.5-15.2)
[2016-06-19 05:21] LABS: INR 4.33 (0.83-1.16); PROTIME(PATIENT) 42.3 SEC (12.0-15.0)
[2016-06-19 05:26] LABS: ANION GAP 5 mEq/L (8-16); CALCIUM 8.5 mg/dL (8.5-10.4); CARBON DIOXIDE 26 mEq/l (22-31); CHLORIDE 110 mEq/L (97-110); CREATININE 0.8 mg/dL (0.6-1.0); GLOMERULAR FILTRATION RATE > 60; GLUCOSE 106 mg/dL (70-100); POTASSIUM 4.1 mEq/L (3.5-5.2); SODIUM 141 mEq/L (134-144)
[2016-06-19] MEDS: AMPICILLIN/SULBACTAM 3 GM in NS 100 ML IV SCH ×3 (05:36→17:05)
[2016-06-19] MEDS: LEVOTHYROXINE 75 MCG TAB PO SCH (05:37)
[2016-06-19] MEDS ORDERED: NS 500 ML IV ONE (06:19)
[2016-06-19] MEDS: MULTIVITAMINS 1 EACH TAB PO SCH ×2 (08:47→17:05)
[2016-06-19] MEDS: DOCUSATE SODIUM 100 MG CAP PO SCH ×2 (08:47→12:47)
[2016-06-19] MEDS ORDERED: NS 1,000 ML IV ONE ×2 (09:32→09:38)
--- NOTE | 2016-06-19 15:50 | HOSPPROG ---
Hospitalist Progress Note Assessment/Plan: # Acute hypotension - since yesterday pm - unclear if pt had DOMONIQUE - hold BP meds - IVF bolus - consult with Dr. Singh and sort out if DOMONIQUE performed yesterday # acute left jaw pain swelling- suspected dental caries -CT maxillofacial ( Personally reviewed and interpreted) shows no abscess or osteomyelitis - continue Augmentin Q6 - can transition to oral antibiotics at disposition # Acute heart murmur- severe mitral regurgitation on echo- concerns for possible endocarditis secondary to concurrent dental infection telemetry( personally reviewed and interpreted) sinus rhythm - DOMONIQUE ordered- will sort out if performed and findings # history of DVT- on anticoagulation- INR 4.33 - continue to hold warfarin this evening - recheck INR in the morning # COPD- stable from a pulmonary standpoint- oxygen saturation 99% on 2 L - continue home meds # schizophrenia- continue home meds # prophylaxis on full-dose anticoag # diet - acute cardiac # disposition greater than 2 midnights patient presenting with concerns for possible endocarditis I have discussed the case with the RN- will give fluid bolus and follow up blood pressure Subjective: reports left facial pain Objective: Vital Signs Temp Pulse Resp BP Pulse Ox 36.6 C 94 19 102/88 H 97 06/19/16 11:40 06/19/16 11:40 06/19/16 11:40 06/19/16 11:40 06/19/16 11:40 Laboratory Results 06/19/16 04:09 06/19/16 04:09 06/18/16 06/19/16 06/20/16 05:59 05:59 05:59 Intake Total 1210 1455 1060 Output Total 500 1200 1000 Balance 710 255 60 PT 42.3 SEC (12.0-15.0) H 06/19/16 04:09 INR 4.33 (0.83-1.16) H 06/19/16 04:09 - Physical Exam Constitutional: appears nourished Eyes: anicteric sclera Ears, Nose, Mouth, Throat: moist mucous membranes Cardiovascular: regular rate and rhythym, systolic murmur Respiratory: no respiratory distress, no rales or rhonchi Gastrointestinal: normoactive bowel sounds, soft, non-tender abdomen Genitourinary: no bladder fullness Skin: warm, normal color Musculoskeletal: No asymmetric calves Neurologic: No AAOx3 Psychiatric: No agitated Lymph, Heme, Immunologic: no cervical LAD ICD10 Worksheet Patient Problems: Problems Problem Status Diagnosed CHF (congestive heart failure) Acute Jaw pain Acute Mitral prolapse Acute Valvular insufficiency, mitral Acute
[2016-06-19] MEDS: ATORVASTATIN CALCIUM 10 MG TAB PO SCH (17:05)
[2016-06-19] MEDS: ACETAMINOPHEN 325 MG TAB PO PRN (18:03)
[2016-06-19] MEDS: oxyCODONE IR 5 MG TAB PO PRN (20:36)
[2016-06-19] MEDS: LITHIUM CARBONATE ER 450 MG TAB PO SCH (20:37)
[2016-06-19] MEDS: ZOLPIDEM TARTRATE 5 MG TAB PO PRN (20:37)
[2016-06-19] MEDS: QUEtiapine FUMARATE 300 MG TAB PO SCH (20:37)
[2016-06-20] MEDS: AMPICILLIN/SULBACTAM 3 GM in NS 100 ML IV SCH ×2 (00:18→06:08)
[2016-06-20 05:43] LABS: HEMATOCRIT 34.6 % (38.0-47.0); MEAN CELL HEMOGLOBIN 31.4 pg (27.9-34.1); MEAN CELL HEMOGLOBIN CONCENTR. 31.8 g/dL (32.4-36.7); MEAN CELL VOLUME 98.9 fL (81.5-99.8); RED BLOOD CELL COUNT 3.5 10^6/uL (4.18-5.33); RED CELL DISTRIBUTION WIDTH 12.8 % (11.5-15.2)
[2016-06-20 05:52] LABS: INR 3.15 (0.83-1.16); PROTIME(PATIENT) 32.8 SEC (12.0-15.0)
[2016-06-20 06:03] LABS: ANION GAP 4 mEq/L (8-16); CALCIUM 8.1 mg/dL (8.5-10.4); CARBON DIOXIDE 24 mEq/l (22-31); CHLORIDE 113 mEq/L (97-110); CREATININE 0.7 mg/dL (0.6-1.0); GLOMERULAR FILTRATION RATE > 60; GLUCOSE 75 mg/dL (70-100); POTASSIUM 4.2 mEq/L (3.5-5.2); SODIUM 141 mEq/L (134-144)
[2016-06-20] MEDS: LEVOTHYROXINE 75 MCG TAB PO SCH (06:08)
[2016-06-20 07:39] VITALS: BP 110/57; PULSE 73; RESP 19; TEMP 99; O2SAT 98
--- NOTE | 2016-06-20 09:10 | PDIAF ---
- Diagnosis Diagnosis: dental naresh and cellulitis Code Status: Full Code - Medication Management Discharge Medications: Medications to Continue on Transfer Docusate Sodium [Colace 100 MG (*)] 100 mg PO BID@,06/04/09 [Last Taken Unknown] Multivitamins [Multivitamin (*)] 1 each PO BID@,06/04/09 [Last Taken Unknown] QUEtiapine FUMARATE [Seroquel 300mg (*)] 300 mg PO HS 06/04/09 [Last Taken Unknown] Warfarin Sodium [Coumadin 4MG (*)] 4 mg PO MOTUWEFRSA@06/04/09 [Last Taken Unknown] Herbals/Supplements -Info Only 1 ea PO DAILY 12/21/09 [Last Taken Unknown] Levothyroxine [Synthroid 75 mcg (*)] 75 mcg PO DAILY06 12/21/09 [Last Taken Unknown] Simvastatin [Zocor] 20 mg PO DAILY@12/21/09 [Last Taken Unknown] Warfarin Sodium [Coumadin 5MG (*)] 5 mg PO SUTH@12/21/09 [Last Taken Unknown] Acetaminophen [Tylenol 325mg (*)] 650 mg PO Q4HRS PRN 06/17/16 [Last Taken Unknown] Ibuprofen [Motrin (*)] 200 mg PO Q4HRS PRN 06/17/16 [Last Taken Unknown] [place] Carbonate ER [Eskalith Cr 450 mg (*)] 675 mg PO HS 06/17/16 [Last Taken Unknown] Amoxicillin/Clavulanate Pot [Augmentin 875 MG TAB (*)] 875 mg PO BID #8 tab [Last Taken Unknown] oxyCODONE IR [Oxycodone Ir (*)] 5 mg PO Q3HRS PRN #30 tab 06/20/16 [Last Taken Unknown] Discharge Medications: Refer to the Discharge Home Medication list for PRN reason. - Orders Services needed: Home Care, Registered Nurse, Physical Therapy, Occupational Therapy Home Care Face to Face: I certify that this patient was under my care and that I had the required [id number] encounter meeting the encounter requirements on the discharge day. My findings support the fact that the patient is homebound as defined in CMS Chapter 7 Medicare Benefits Manual 30.1.1, The condition of the patient is such that there exists a normal inability to leave home and consequently, leaving home would require a considerable and taxing effort. Diet Recommendation: cardiac -low fat low salt Diet Texture: Regular Texture Diet - Labs/Radiology PT/INR Date: 06/21/16 (call results to Dr. Judge) - Follow Up Care Current Providers and Referrals: Eleuterio Judge MD [Primary Care Provider] - Devante Singh MD [Medical Doctor] -
[2016-06-20] MEDS: DOCUSATE SODIUM 100 MG CAP PO SCH (09:29)
[2016-06-20] MEDS: MULTIVITAMINS 1 EACH TAB PO SCH (09:29)
[2016-06-20] MEDS ORDERED: WARFARIN SODIUM 5 MG TAB PO SCH (17:00)
--- NOTE | 2016-06-20 18:28 | GDS ---
[f rep st] DISCHARGE SUMMARY DISCHARGE DIAGNOSES: Include: 1. Acute left facial cellulitis with associated dental caries. 2. Acute hypotension, resolved with fluids. 3. Severe mitral regurgitation, new diagnosis. 4. Paranoid schizophrenia. 5. History of deep venous thrombosis, on anticoagulation with supratherapeutic international normali zed ratio while inpatient. 6. Chronic obstructive pulmonary disease. HISTORY OF PRESENT ILLNESS: A very pleasant 75-year-old female with paranoid schizophrenia who lives at a fpc, presented with acute left jaw pain and newly auscultated heart murmur. For details of patient's initial presentation, please see the history and physical dated 06/17/2016. CONSULTATIVE SERVICES ON THIS PATIENT: Include Cardiology. PROCEDURES ON THIS PATIENT: On 06/17/2016, patient had a transthoracic echocardiogram that showed no rmal LV size and function and severe mitral regurgitation. On 06/18/2016, patient had a CT of the f rigo that showed superficial cellulitis along the left side of the mandible and chin, presumed dental caries of the left canine. HOSPITAL BY ISSUE: 1. Left jaw pain and swelling: Patient had imaging verify no deeper abscess or osteomyelitis, was i nitiated on Unasyn while inpatient and transitioned to Augmentin to complete a 7-day course. She domonique l follow with her outpatient provider, as well as with Dental per our recommendation as we suspect th e patient needs a tooth extraction. 2. New heart murmur: Patient had both transthoracic and transesophageal echocardiography confirming severe mitral regurgitation. She will follow in the outpatient setting with Dr. Singh. 3. Paranoid schizophrenia: She was continued on her home meds without change. 4. Hypotension: Patient had acute hypotension after her transesophageal echo. She had rebound of he r normal pressures with fluid and supportive care. We are asking that she continue to hold her 2 low -dose blood pressure medications until seen in the clinic by Dr. Judge, where he can safely check h er blood pressure and restart those medicines as needed. MEDICATIONS AT THE TIME OF DISPOSITION: Please reference medication reconciliation printed on 2016. PENDING STUDIES AT THE TIME OF THIS DICTATION: Include blood cultures drawn 06/17/2016, which are pr eliminary no growth to date. FOLLOWUP APPOINTMENTS FOR THIS PATIENT: Include: 1. With Dr. Judge for blood pressure and laboratory check in the next 7-10 days. 2. INR check the day after disposition for appropriate titration of her warfarin therapy, which we w vestald like to have restarted the day after disposition on 06/21/2016. I spent greater than 30 minutes in the planning and coordination of this discharge. /[id number]/MODL
--- NOTE | 2016-07-04 16:38 | ECHO ---
[id number] + + [address] : : [facility] [address] : : [phone] + + Transesophageal Echocardiographic Report + --------+ :Name: MYRTLE OLEA LStudy Date: 06/18/2016 02:00 PM : : Hospital Admission Number: [id number] Locat ion: CVC: :: 1940 Gender: Female : :Age: 75 yrs Race: WH : :Reason For Study: Eval mitral regurgitation : + --------+ Atria Injection of contrast documented no interatrial shunt. Mitral Valve There is a flail portion of the posterior mitral leaflet. Cannot exclude vegetation but highly unlikely. Prolapse of the posterior mitral leaflet(s). There is severe mitral regurgitation. Tricuspid Valve There is moderate tricuspid regurgitation. Aortic Valve The aortic valve is trileaflet. Conclusion A 2D transesophageal echocardiogram with color flow Doppler was performed. Injection of contrast documented no interatrial shunt. There is a flail portion of the posterior mitral leaflet. Cannot exclude vegetation but highly unlikely. Prolapse of the posterior mitral leaflet(s). There is severe mitral regurgitation. There is moderate tricuspid regurgitation. Final Reading Physician: Steven Garrett signed on 07/04/2016 04:36 PM Ordering Physician: BRUNA GARCIA Performed By: Bruna Garcia MD
== END 2016-06-20 12:20 | disposition home or self-care (01) | DRG 603 ==
LOC: F2W 11:45 → OBSVTOIN 13:38
PROVIDERS: ADMIT Internal Medicine; ATTEND Internal Medicine
DX: L03.211 Cellulitis of face (principal); K02.9 Dental caries, unspecified; I34.0 Nonrheumatic mitral (valve) insufficiency; I95.9 Hypotension, unspecified; J44.9 Chronic obstructive pulmonary disease, unspecified; I10 Essential (primary) hypertension; F20.0 Paranoid schizophrenia; E03.9 Hypothyroidism, unspecified; Z96.649 Presence of unspecified artificial hip joint; Z86.711 Personal history of pulmonary embolism; Z79.01 Long term (current) use of anticoagulants; Z99.81 Dependence on supplemental oxygen; Z87.891 Personal history of nicotine dependence
CPT/HCPCS: 97162-GP; 97165-GO; G8978-GP-CK; G8979-GP-CI; G8987-GO-CK; G8988-GO-CI; J0295; J2250; J3010; Q9967

== ENCOUNTER → 2017-02-10 | Outpatient (CLI) | payer OTHER | LOC: BMCIMAGING 09:54 | PROVIDERS: ATTEND Orthopaedic Surgery | DX: M25.551 Pain in right hip (principal); Q65.89 Other specified congenital deformities of hip; Z96.641 Presence of right artificial hip joint; M16.11 Unilateral primary osteoarthritis, right hip ==

== ENCOUNTER 2017-04-10 11:43 | Emergency (ER) | payer OTHER ==
[2017-04-10 11:50] VITALS: BP 121/72; PULSE 67; RESP 16; TEMP 98.6; O2SAT 95
== END 2017-04-10 11:50 | disposition left against medical advice (07) ==
DX: Z53.21 Procedure and treatment not carried out due to patient leaving prior to being seen by health care provider (principal)

== ENCOUNTER 2018-01-30 01:00 | Emergency (ER) | payer OTHER ==
--- NOTE | 2018-01-30 02:15 | EDPHY ---
H & P Stated Complaint: fell out of bed around 2029 last noght Time Seen by Provider: 01/30/18 02:02 HPI/ROS: HPI: The patient presents with a fall out of bed which occurred at 8:30 p.m. Tonight. The patient resides at assisted living and usually uses a walker. She is brought in by ambulance after this fall. She was sitting at the edge of her bed and slipped out, landing on her left side on a wood floor. She immediately experienced middle in low back pain which was severe and aching in nature. She was unable to get up and called for help. She received fentanyl with improvement in her symptoms in the ambulance. She denies any numbness or tingling of her arms or legs. She does not have any weakness of her arms or legs. REVIEW OF SYSTEMS Constitutional: No fever, no chills. Eyes: No discharge. ENT: No sore throat. Cardiovascular: No chest pain, no palpitations. Respiratory: No cough, no shortness of breath. Gastrointestinal: No abdominal pain, no vomiting. Genitourinary: No hematuria. Musculoskeletal: No back pain. Skin: No rashes. Neurological: No headache. PMHx: Paranoid schizophrenia, CHF with mitral valve regurgitation, history of PE on Coumadin, COPD TRAUMA PHYSICAL General Appearance: Alert, no distress Head: Atraumatic Eyes: Pupils equal, round, reactive ENT, Mouth: No hemotypanium, no oral trauma Neck: Non- tender, trachea midline Respiratory: No chest wall tenderness, no subcutaneous air, lungs clear bilaterallty Cardiovascular: Regular rate and rhythm Abdomen: Abdomen is soft and non-tender, pelvis stable Skin: No lacerations, No abrasion Back: Midline tenderness of her midthoracic and lower lumbar spine Extremities: Non-tender, full range of motion Neurological: A&Ox3, GCS=15,normal motor function with 5/5 strength in all 4 extremities, normal sensory exam Source: Patient Exam Limitations: No limitations - Personal History Current Tetanus Diphtheria and Acellular Pertussis (TDAP): Yes - Medical/Surgical History Hx Asthma: No Hx Chronic Respiratory Disease: No Hx Diabetes: No Hx Cardiac Disease: No Hx Renal Disease: No Hx Cirrhosis: No Hx Alcoholism: No Hx HIV/AIDS: No Hx Splenectomy or Spleen Trauma: No Other PMH: hip replacement, leak heart - Social History Smoking Status: Never smoked Constitutional: Initial Vital Signs Temperature (C) 36.9 C 01/30/18 01:19 Heart Rate 68 01/30/18 01:19 Respiratory Rate 18 01/30/18 01:19 Blood Pressure 120/58 L 01/30/18 01:19 O2 Sat (%) 97 01/30/18 01:19 O2 Delivery Mode Room Air O2 (L/minute) 2 Allergies/Adverse Reactions: loratadine [Loratadine] Allergy (Mild, Verified 01/30/18 01:18) Rash Home Medications: Medication Instructions Recorded Docusate Sodium [Colace 100 MG (*)] 100 mg PO BID@,06/04/09 Multivitamins [Multivitamin (*)] 1 each PO BID@,06/04/09 QUEtiapine FUMARATE [Seroquel 300 mg PO HS 06/04/09 300mg (*)] Warfarin Sodium [Coumadin 4MG (*)] 4 mg PO MOTUWEFRSA@06/04/09 Herbals/Supplements -Info Only 1 ea PO DAILY 12/21/09 Levothyroxine [Synthroid 75 mcg 75 mcg PO DAILY06 12/21/09 (*)] Simvastatin [Zocor] 20 mg PO DAILY@17 12/21/09 Warfarin Sodium [Coumadin 5MG (*)] 5 mg PO SUTH@17 12/21/09 Acetaminophen [Tylenol 325mg (*)] 650 mg PO Q4HRS PRN 06/17/16 Ibuprofen [Motrin (*)] 200 mg PO Q4HRS PRN 06/17/16 [place] Carbonate ER [Eskalith Cr 675 mg PO HS 06/17/16 450 mg (*)] Amoxicillin/Clavulanate Pot 875 mg PO BID #8 tab 06/20/16 [Augmentin 875 MG TAB (*)] oxyCODONE IR [Oxycodone Ir (*)] 5 mg PO Q3HRS PRN #30 tab 06/20/16 Medical Decision Making - Diagnostics Imaging Results: CT thoracic and lumbar spine shows no acute fractures, discussed with Dr. Tamayo of Radiology. Imaging: Discussed imaging studies w/ call or contact centre manager Radiologist Differential Diagnosis: 77-year-old female brought in by ambulance from assisted living with past medical history of paranoid schizophrenia, CHF with mitral valve regurgitation, history of PE on Coumadin and COPD presents with lower back pain after a fall. On exam, she has somewhat diffuse tenderness of her thoracic and lumbar spine. There are no other signs of injury. She was given medication for pain, basic labs were checked and her labs are normal. CT scan of her thoracic and lumbar spine are also normal. She was allowed to rest in the emergency department and eventually was able to walk with some assistance. She received a single dose of fentanyl 50 mcg. At baseline she does use a walker. She is feeling much better and will be discharged home. She asked for medicine for pain so I will give her a very short course of [place]. I have advised that she use heat packs or ice packs as well for the pain. She will be discharged back to her assisted living via [facility]. - Data Points Laboratory Results: Laboratory Results 01/30/18 02:11 01/30/18 02:11 01/30/18 01/30/18 01/30/18 02:11 02:11 02:11 WBC 12.44 10^3/uL H 10^3/uL (3.80-9.50) RBC 4.11 10^6/uL L 10^6/uL (4.18-5.33) Hgb 12.8 g/dL g/dL (12.6-16.3) Hct 39.5 % % (38.0-47.0) MCV 96.1 fL fL (81.5-99.8) MCH 31.1 pg pg (27.9-34.1) MCHC 32.4 g/dL g/dL (32.4-36.7) RDW 12.7 % % (11.5-15.2) Plt Count 175 10^3/uL 10^3/uL (150-400) MPV 10.9 fL fL (8.7-11.7) Neut % (Auto) 63.5 % % (39.3-74.2) Lymph % (Auto) 22.3 % % (15.0-45.0) Levy % (Auto) 6.4 % % (4.5-13.0) Eos % (Auto) 6.9 % % (0.6-7.6) Baso % (Auto) 0.6 % % (0.3-1.7) Nucleat RBC Rel Count 0.0 % % (0.0-0.2) Absolute Neuts (auto) 7.91 10^3/uL H 10^3/uL (1.70-6.50) Absolute Lymphs (auto) 2.77 10^3/uL 10^3/uL (1.00-3.00) Absolute Monos (auto) 0.79 10^3/uL 10^3/uL (0.30-0.80) Absolute Eos (auto) 0.86 10^3/uL H 10^3/uL (0.03-0.40) Absolute Basos (auto) 0.07 10^3/uL 10^3/uL (0.02-0.10) Absolute Nucleated RBC 0.00 10^3/uL 10^3/uL (0-0.01) Immature Gran % 0.3 % % (0.0-1.1) Immature Gran # 0.04 10^3/uL 10^3/uL (0.00-0.10) PT 23.9 SEC H SEC (12.0-15.0) INR 2.13 H (0.83-1.16) APTT 32.0 SEC SEC (23.0-38.0) Sodium 141 mEq/L mEq/L (135-145) Potassium 3.6 mEq/L mEq/L (3.3-5.0) Chloride 105 mEq/L mEq/L (97-110) Carbon Dioxide 25 mEq/l mEq/l (22-31) Anion Gap 11 mEq/L mEq/L (8-16) BUN 18 mg/dL mg/dL (7-23) Creatinine 0.9 mg/dL mg/dL (0.6-1.0) Estimated GFR > 60 Glucose 120 mg/dL H mg/dL (70-100) Calcium 9.1 mg/dL mg/dL (8.5-10.4) [place] 0.7 mEq/L mEq/L (0.6-1.2) Medications Given: Discontinued Medications Fentanyl (Sublimaze) 50 mcg IVP EDNOW ONE Stop: 01/30/18 02:48 Last Admin: 01/30/18 02:51 Dose: 50 mcg Departure - Departure Disposition: Home, Routine, Self-Care Clinical Impression: Fall from bed, initial encounter Lower back pain Qualifiers: Chronicity: acute Back pain laterality: midline Sciatica presence: without sciatica Qualified Code(s): M54.5 - Low back pain Condition: Good Instructions: Fall Prevention for Older Adults (ED), Low Back Strain (ED) Additional Instructions: Your x-ray show that you do not have any broken bones in your back. I do recommend you use rest, heat packs or ice packs for pain. You can use the pain medication I am giving you as well. Return to the emergency department if your worse in any way. I recommend that you take [place] 1 tab every 6 hr as needed for your pain. Referrals: Patient,NotPresent [Unknown] - As per Instructions
[2018-01-30 02:16] LABS: PLATELET COUNT 175 10^3/uL (150-400)
[2018-01-30 02:34] LABS: INR 2.13 (0.83-1.16); PROTIME(PATIENT) 23.9 SEC (12.0-15.0)
[2018-01-30] MEDS ORDERED: fentaNYL 100 MCG/2 ML INJ IVP ONE (02:47)
[2018-01-30 05:02] VITALS: BP 108/51
[2018-01-30] MEDS ORDERED: HYDROCOD/APAP 5/325 PREPACK#6 BTL TAKEHOME ONE (05:24)
== END 2018-01-30 05:38 | disposition home or self-care (01) ==
LOC: EDUNIT#
DX: M51.36 Other intervertebral disc degeneration, lumbar region (principal); W06.XXXA Fall from bed, initial encounter; Y92.122 Bedroom in nursing home as the place of occurrence of the external cause
CPT/HCPCS: 72128; 72131; 96374; 99285; J3010

== ENCOUNTER → 2018-04-22 | Outpatient (CLI) | payer OTHER | LOC: BMCIMAGING 15:02 | PROVIDERS: ATTEND Orthopaedic Surgery | DX: M17.11 Unilateral primary osteoarthritis, right knee (principal) ==